=== PATIENT | female | born 1995 | race Caucasian/White ===

== ENCOUNTER 2016-11-26 17:52 | Emergency (ER) | payer BC, MEDICAID ==
[~2016-11-26] VITALS: Ht 157.5 cm; Wt 94.3 kg
[~2016-11-26 17:52] MED LIST: LABETALOL 100M100 M1 PO; LABETALOL200 MG PO; PRENATAL PLUS1 TA1 PO
[2016-11-26] MEDS ORDERED: CITALOPRAM HYDR40 MG PO (18:16)
[2016-11-26] MEDS ORDERED: SPRINTEC 35 MCG1 TAB PO (18:16)
--- NOTE | 2016-11-26 19:06 | Urgent Treatment Center Report ---
See Addendum History of Present Issue Date/Time Seen by Provider 11/26/16 5972 Visit Reason Pt arrived:Walked Presenting Problem:PT STATES LIGHTHEADEDNESS LIKE SHE IS GOING TO PASS OUT. STATES HAVING HEART PALPITATIONS LAST NIGHT. DENIES ANY OTHER SYMPTOMS AND STATES FEELING FINE. STATES DOES NOT HAPPEN WITH POSITION CHANGES. STATES SHE CAN BE STATIONARY WHEN IT HAPPENS. STATES BEGAN SATURDAY Location if Accident: Onset of symptoms date/time:11/21/16/ or onset unknown for:MEDICAL HX UNKNOWN Have you (or family members/close friends) recently traveled outside the [facility]? N If Yes, where/when: Have you had exposure to infectious disease within the past month? TB? Other? Specify: Here w/ mom c/o feeling lightheaded and near syncope. First noticed , 4 days ago. Since that time, episodes have been occurring more frequently. Initially only twice on and now every 30-60 minutes. Lasting approx. 5- 10 minutes. Denies dizziness. "Almost feels like you are high and everything is fading away." Heart palpitations and tachycardia started yesterday. Hx of palpitions during 1.5-2 years ago but not since then. Denies any fever, bodyaches, chills, malaise. No change w/ position changes. "Doesn't matter what I am doing, moving or sitting still, it happens". Hasn't taken or tried anything for symptoms "I don't know what I would take" Source patient, family (mother) Exam Limitations no limitations ALLERGIES Coded Allergies: No Known Allergies (11/26/16) Home Medications Reported Medications NORGESTIMATE-ETHINYL ESTRADIOL (Sprintec 28 Day Tablet) 1 TAB PO DAILY #28 Citalopram Hydrobromide (Citalopram HBr) 40 MG PO NIGHTLY #30 History Medical History General CAD? No Angina: No [place]: No Hypertension? No Hyperlipidemia? No CHF? No DVT? No PE? No COPD? No Asthma? No Anemia? No GERD? No Gastric ulcers? No GI Bleed? No Hernia? No Thyroid Problems? No Hypothyroidism? No CVA? No Seizures? No Diabetes? No Renal Insuffiency? No UTI? No Stones? No GB Disease: No Nephritic Syndrome? No Asplenia? No Hepatitis? No Sickle Cell Disease? No Arthritis? No Migraines? No Cataracts? No Glaucoma? No MRSA? No HIV? No TB? No Anxiety? No Depression? No Cancer? 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 Respiratory denies cough, denies shortness of breath Cardiovascular see HPI, denies chest pain, denies edema, palpitations Gastrointestinal denies abdominal pain, denies diarrhea, denies nausea, denies vomiting Musculoskeletal denies other (pain) Skin denies rash Psychiatric/Neurological denies anxiety, denies headache Physical Exam Vital Signs Vital Signs Date Time Temp Pulse Resp B/P Pulse O2 O2 Flow FiO2 Ox Delivery Rate 11/26 1811 97.8 113 18 129/75 98 repeat HR 101 (HERMINIA ACUÑA APRN) General Appearance normal appearance, no apparent distress Ear, Nose, Throat normal ENT inspection Neck non-tender, supple Respiratory Status No: respiratory distress (no cough). Lung Sounds anterior: lungs clear. posterior: lungs clear. bilateral: lungs clear. Cardiovascular regular rate/rhythm, no murmur Neurologic alert Skin warm/dry Lymphatic no adenopathy (cervical) Medical Decision Making LABS/Meds/Orders Pt receiving controlled substance in ED? No Departure Departure Time of Disposition 1904 Disposition Still a Patient Clinical Impression Primary Impression: Near syncope Secondary Impressions: Tachycardia Condition STABLE Referrals Alexis GERBER,Amilcar (Family) Additional Instructions sent to ER for further evaluation and management. Report called to Ines in ER. at 1906
--- NOTE | 2016-11-26 19:06 | Urgent Treatment Center Report ---
See Addendum History of Present Issue Date/Time Seen by Provider 11/26/16 3702 Visit Reason Pt arrived:Walked Presenting Problem:PT STATES LIGHTHEADEDNESS LIKE SHE IS GOING TO PASS OUT. STATES HAVING HEART PALPITATIONS LAST NIGHT. DENIES ANY OTHER SYMPTOMS AND STATES FEELING FINE. STATES DOES NOT HAPPEN WITH POSITION CHANGES. STATES SHE CAN BE STATIONARY WHEN IT HAPPENS. STATES BEGAN SATURDAY Location if Accident: Onset of symptoms date/time:11/21/16/ or onset unknown for:MEDICAL HX UNKNOWN Have you (or family members/close friends) recently traveled outside the [facility]? N If Yes, where/when: Have you had exposure to infectious disease within the past month? TB? Other? Specify: Here w/ mom c/o feeling lightheaded and near syncope. First noticed , 4 days ago. Since that time, episodes have been occurring more frequently. Initially only twice on and now every 30-60 minutes. Lasting approx. 5- 10 minutes. Denies dizziness. "Almost feels like you are high and everything is fading away." Heart palpitations and tachycardia started yesterday. Hx of palpitions during 1.5-2 years ago but not since then. Denies any fever, bodyaches, chills, malaise. No change w/ position changes. "Doesn't matter what I am doing, moving or sitting still, it happens". Hasn't taken or tried anything for symptoms "I don't know what I would take" Source patient, family (mother) Exam Limitations no limitations ALLERGIES Coded Allergies: No Known Allergies (11/26/16) Home Medications Reported Medications NORGESTIMATE-ETHINYL ESTRADIOL (Sprintec 28 Day Tablet) 1 TAB PO DAILY #28 Citalopram Hydrobromide (Citalopram HBr) 40 MG PO NIGHTLY #30 History Medical History General CAD? No Angina: No [place]: No Hypertension? No Hyperlipidemia? No CHF? No DVT? No PE? No COPD? No Asthma? No Anemia? No GERD? No Gastric ulcers? No GI Bleed? No Hernia? No Thyroid Problems? No Hypothyroidism? No CVA? No Seizures? No Diabetes? No Renal Insuffiency? No UTI? No Stones? No GB Disease: No Nephritic Syndrome? No Asplenia? No Hepatitis? No Sickle Cell Disease? No Arthritis? No Migraines? No Cataracts? No Glaucoma? No MRSA? No HIV? No TB? No Anxiety? No Depression? No Cancer? 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 Respiratory denies cough, denies shortness of breath Cardiovascular see HPI, denies chest pain, denies edema, palpitations Gastrointestinal denies abdominal pain, denies diarrhea, denies nausea, denies vomiting Musculoskeletal denies other (pain) Skin denies rash Psychiatric/Neurological denies anxiety, denies headache Physical Exam Vital Signs Vital Signs Date Time Temp Pulse Resp B/P Pulse O2 O2 Flow FiO2 Ox Delivery Rate 11/26 1811 97.8 113 18 129/75 98 repeat HR 101 (HERMINIA ACUÑA APRN) General Appearance normal appearance, no apparent distress Ear, Nose, Throat normal ENT inspection Neck non-tender, supple Respiratory Status No: respiratory distress (no cough). Lung Sounds anterior: lungs clear. posterior: lungs clear. bilateral: lungs clear. Cardiovascular regular rate/rhythm, no murmur Neurologic alert Skin warm/dry Lymphatic no adenopathy (cervical) Medical Decision Making LABS/Meds/Orders Pt receiving controlled substance in ED? No Departure Departure Time of Disposition 1904 Disposition Still a Patient Clinical Impression Primary Impression: Near syncope Secondary Impressions: Tachycardia Condition STABLE Referrals Alexis GERBER,Amilcar (Family) Additional Instructions sent to ER for further evaluation and management. Report called to Ines in ER. at 1906
[2016-11-26 19:29] LABS: URINE BILIRUBIN - DIPSTICK NEGATIVE (NEG); URINE BLOOD NEGATIVE (NEG)
[2016-11-26 19:39] LABS: URINE SQUAMOUS CELLS 20-50 #/hpf (0-5)
[2016-11-26 20:05] LABS: AMPHETAMINES/METAMPHETAMINES NEGATIVE ng/mL (<1000)
[2016-11-26 20:11] LABS: LYMPH # 3.5 K/mm3 (0.7-4.5); LYMPH % 32.4 % (10-50.0)
[2016-11-26 20:19] LABS: HEMOGLOBIN 14.4 g/dL (12.2-16.2)
[2016-11-26 20:30] LABS: FREE THYROXIN INDEX 8.1 ug/dl (5.93-13.13)
[2016-11-26 21:23] VITALS: BP 125/82
== END 2016-11-26 21:24 | disposition home or self-care (01) ==
LOC: UTC 17:52 → ER 18:01 → UTC 18:01 → ER 21:24
PROVIDERS: Emergency Medicine
DX: R55 Syncope and collapse (principal); R00.0 Tachycardia, unspecified

== ENCOUNTER 2017-02-09 11:20 | Emergency (ER) | payer BC, MEDICAID ==
[~2017-02-09] VITALS: Ht 157.5 cm; Wt 90.7 kg
[~2017-02-09 11:20] MED LIST changes: +ACIDOPHILUS1 CTB PO; +CITALOPRAM HYDR40 MG PO; +CLINDAMYCIN HC300 MG PO; +SPRINTEC 35 MCG1 TAB PO
--- NOTE | 2017-02-09 11:42 | Emergency Room Report ---
History of Present Illness Time Seen by 1136 Presenting Problem in Triage Pt arrived:Walked Presenting Problem:PT REPORTS SHE HAS AN ABSCESS IN THE LEFT SIDE OF HER MOUTH AND THE PAIN IS RADIATING INTO HER JAW. PT WAS SEEN IN THE [facility] YESTERDAY AND GIVEN CLINDAMYCIN AND A PROBIOTIC. PT ALSO REPORTS TAKING IBUPROFEN FOR THE PAIN WITHOUT ANY RELIEF. 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 N Clinical Suspician of Infection? N Mental Status: 1 - Regular (Normal Baseline) Sepsis Risk:Low Sepsis Risk Have you (or family members/close friends) recently traveled outside the [place]? N If Yes, where/when: Have you had exposure to infectious disease within the past month? N TB? Other? Specify: Source patient, RN notes reviewed Exam Limitations no limitations Comment Pt seen in the [facility] yesterday with an abscessed tooth and treated with Clindamycin and a Probiotic. She has been taking Ibuprofen for pain and it has not helped. There is no Dentist in [facility] open today and she does not want to go to today. Cardiac Chest Pain Chest pain indicative of cardiac No ALLERGIES Coded Allergies: No Known Allergies (11/26/16) Home Medications Active Scripts Clindamycin Hcl (Clindamycin 300MG) 300 MG PO QID #40 CAP Prov: 02/08/17 LACTOBACILLUS ACIDOPHILUS (Acidophilus) 1 CTB PO BID #20 CTB Prov: 02/08/17 Reported Medications NORGESTIMATE-ETHINYL ESTRADIOL (Sprintec 28 Day Tablet) 1 TAB PO DAILY #28 History Medical History General CAD? No Angina: No [place]: No Hypertension? No Hyperlipidemia? No CHF? No DVT? No PE? No COPD? No Asthma? No Anemia? No GERD? No Gastric ulcers? No GI Bleed? No Hernia? No Thyroid Problems? No Hypothyroidism? No CVA? No Seizures? No Diabetes? No Renal Insuffiency? No End Stage Renal Disease? No UTI? No Stones? No BPH? No GB Disease: No Nephritic Syndrome? No Asplenia? No Hepatitis? No Sickle Cell Disease? No Arthritis? No Migraines? No Cataracts? No Glaucoma? No MRSA? No HIV? No TB? No Anxiety? No Depression? No Cancer? No More? 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 Physical Exam Vital Signs Vital Signs Date Time Temp Pulse Resp B/P Pulse O2 O2 Flow FiO2 Ox Delivery Rate 02/09 1126 98.2 100 18 154/61 97 General Appearance normal appearance, WD/WN, mild distress Ear, Nose, Throat abscessed tooth left lower molar with mild swelling of the jaw itself Respiratory Status No: respiratory distress. Cardiovascular normal exam, regular rate/rhythm Neurologic alert Medical Decision Making LABS/Meds/Orders Pt receiving controlled substance in ED? Yes Lawrence was queried for this patient? Yes Reference #: [id number] Risks/benefits of using a controlled substance for treatment were not discussed w/pt Comment Pt has had no scheduled drugs prescribed in the past year Departure Departure Time of Disposition 1151 Disposition DC Home or Self Care(routine) Clinical Impression Primary Impression: Abscessed tooth Condition STABLE Referrals Amilcar Espinoza MD (Family): 2 Days-Call Office Patient Instructions DI for Tooth Abscess Additional Instructions Use antibiotics and pain meds as directed. If any worse over the weekend, advised to go to to the Dental Clinic for evaluation Discharge Counseling Counseled pt/family regarding diagnosis, medications/RX, home care, follow up needs Prescriptions Current Visit Scripts HYDROCODONE 5MG/APAP 325MG (Hydrocodon-Acetaminophen 5-325) 1 TAB PO Q4HP PRN dental abscess #15 TAB ED Critical Care Critical Care No If Critical Care minutes are documented, the time involved in the performance of seperately reportable procedures was not counted toward critical care time documented. I directly delivered medical care to this critically ill and/or injured patient. Timely evaluation and treatment was necessary to address the significant organ system(s) dysfunction present in this patient. at 1153
--- NOTE | 2017-02-09 11:42 | Emergency Room Report ---
History of Present Illness Time Seen by 1136 Presenting Problem in Triage Pt arrived:Walked Presenting Problem:PT REPORTS SHE HAS AN ABSCESS IN THE LEFT SIDE OF HER MOUTH AND THE PAIN IS RADIATING INTO HER JAW. PT WAS SEEN IN THE [facility] YESTERDAY AND GIVEN CLINDAMYCIN AND A PROBIOTIC. PT ALSO REPORTS TAKING IBUPROFEN FOR THE PAIN WITHOUT ANY RELIEF. 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 N Clinical Suspician of Infection? N Mental Status: 1 - Regular (Normal Baseline) Sepsis Risk:Low Sepsis Risk Have you (or family members/close friends) recently traveled outside the [place]? N If Yes, where/when: Have you had exposure to infectious disease within the past month? N TB? Other? Specify: Source patient, RN notes reviewed Exam Limitations no limitations Comment Pt seen in the [facility] yesterday with an abscessed tooth and treated with Clindamycin and a Probiotic. She has been taking Ibuprofen for pain and it has not helped. There is no Dentist in [facility] open today and she does not want to go to today. Cardiac Chest Pain Chest pain indicative of cardiac No ALLERGIES Coded Allergies: No Known Allergies (11/26/16) Home Medications Active Scripts Clindamycin Hcl (Clindamycin 300MG) 300 MG PO QID #40 CAP Prov: 02/08/17 LACTOBACILLUS ACIDOPHILUS (Acidophilus) 1 CTB PO BID #20 CTB Prov: 02/08/17 Reported Medications NORGESTIMATE-ETHINYL ESTRADIOL (Sprintec 28 Day Tablet) 1 TAB PO DAILY #28 History Medical History General CAD? No Angina: No [place]: No Hypertension? No Hyperlipidemia? No CHF? No DVT? No PE? No COPD? No Asthma? No Anemia? No GERD? No Gastric ulcers? No GI Bleed? No Hernia? No Thyroid Problems? No Hypothyroidism? No CVA? No Seizures? No Diabetes? No Renal Insuffiency? No End Stage Renal Disease? No UTI? No Stones? No BPH? No GB Disease: No Nephritic Syndrome? No Asplenia? No Hepatitis? No Sickle Cell Disease? No Arthritis? No Migraines? No Cataracts? No Glaucoma? No MRSA? No HIV? No TB? No Anxiety? No Depression? No Cancer? No More? 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 Physical Exam Vital Signs Vital Signs Date Time Temp Pulse Resp B/P Pulse O2 O2 Flow FiO2 Ox Delivery Rate 02/09 1126 98.2 100 18 154/61 97 General Appearance normal appearance, WD/WN, mild distress Ear, Nose, Throat abscessed tooth left lower molar with mild swelling of the jaw itself Respiratory Status No: respiratory distress. Cardiovascular normal exam, regular rate/rhythm Neurologic alert Medical Decision Making LABS/Meds/Orders Pt receiving controlled substance in ED? Yes Lawrence was queried for this patient? Yes Reference #: [id number] Risks/benefits of using a controlled substance for treatment were not discussed w/pt Comment Pt has had no scheduled drugs prescribed in the past year Departure Departure Time of Disposition 1151 Disposition DC Home or Self Care(routine) Clinical Impression Primary Impression: Abscessed tooth Condition STABLE Referrals Amilcar Espinoza MD (Family): 2 Days-Call Office Patient Instructions DI for Tooth Abscess Additional Instructions Use antibiotics and pain meds as directed. If any worse over the weekend, advised to go to to the Dental Clinic for evaluation Discharge Counseling Counseled pt/family regarding diagnosis, medications/RX, home care, follow up needs Prescriptions Current Visit Scripts HYDROCODONE 5MG/APAP 325MG (Hydrocodon-Acetaminophen 5-325) 1 TAB PO Q4HP PRN dental abscess #15 TAB ED Critical Care Critical Care No If Critical Care minutes are documented, the time involved in the performance of seperately reportable procedures was not counted toward critical care time documented. I directly delivered medical care to this critically ill and/or injured patient. Timely evaluation and treatment was necessary to address the significant organ system(s) dysfunction present in this patient. at 1153
[2017-02-09] MEDS ORDERED: HYDROCODONE-APA1 TA1 PO (11:53)
[2017-02-09 12:03] VITALS: BP 154/61
--- OUTSIDE RECORDS SUMMARY | 2017-02-10 22:41 | External Medical Summary Rpt ---
Author Author , Organization [employer] Address Unknown Phone Unavailable Care Team Providers Care Fly Maker Name Role Phone PRICE GUZMAN, PRICE Unavailable Unavailable GU[facility]MAN [facility] Unavailable Unavailable INC, [facility], Unavailable Unavailable [facility] Unavailable Unavailable [facility], [facility] Unavailable Unavailable EQUIPME, [facility] Unavailable Unavailable [facility], [facility] Purpose Continuity of Care Document - 04-29-2015 through 2016 Problems Code Diagnosis DOS Provider Status R000 TACHYCARDIA 11-26-2016 [facility] UNSPECIFIED INC R55 SYNCOPE AND 11-26-2016 [facility] P929 FEEDING 09-01-2015 [facility] PROBLEM OF HOME MEDICAL UNSPECIFIED EQUIPME [id number] OLIGOHYDRAM 08-31-2015 [facility] MEDICAL UNSPECIFIED IMAGING ASS TRIMESTER NA/UNS [id number] OLIGOHYDRAM 08-31-2015 [facility] TRIMESTER INC FETUS 1 [id number] MATERNAL 08-24-2015 [facility] GROWTH 3RD TRI NA/UNS [id number] 35 WEEKS 08-24-2015 [facility] GESTATION [facility] OF INC O133 GESTATIONAL 07-29-2015 [facility] HTN W/O [facility] SIG INC PROTEINURIA THIRD TRI [id number] 31 WEEKS 07-29-2015 [facility] GESTATION [facility] [place] [facility] [id number] OTHER SPEC 07-27-2015 [facility] RELATED INC COND 3RD TRIMESTER 38538 ABNORMAL 07-01-2015 [facility] MATERNAL PHYSICIANS GLUCOSE GROUP TOLERANCE ANTEPARTUM V220 SUPERVISION 04-29-2015 [facility] FIRST INC K04.7 PERIAPICAL ABSCESS WITHOUT SINUS R00.0 TACHYCARDIA , UNSPECIFIED R55 SYNCOPE AND COLLAPSE S16.1XXA STRAIN OF MUSCLE, FASCIA AND TENDON AT NECK LEVEL, INIT Procedures Procedure DOS Code Location Performer Comment XTRNL ECG 50722 [facility] & 48 HR 7 [facility] RECORDING INC INC THYROID 70214 [facility] HORM 7 [facility] UPTK/THYR INC INC OID HORMONE BINDING RATIO BLOOD 27537 [facility] COUNT 7 [facility] COMPLETE INC INC AUTO&AUTO DIFRNTL WBC EXTERNAL 61166 [facility] ECG 7 [facility] SC[place]ING [place] [address] [facility] THYROXINE 7 [facility] TOTAL INC INC CULTURE 94530 [facility] BACTERIAL 7 [facility] INC INC QUANTTATI VE COLONY COUNT URINE URINE 40302 [facility] 7 [facility] TEST INC [place] [address] [facility] THYROID 7 [facility] STIMULATI INC INC NG HORMONE TSH COMPREHEN 98434 [facility] SIVE 7 [facility] METABOLIC INC INC PANEL DRUG TEST 32641 [facility] PRSMV 7 [facility] QUAL DIR INC INC OPTICAL OBS PER DAY BREAST E0603 NICK NICK PUMP 5 HOME HOME ELECTRIC MEDICAL MEDICAL ANY TYPE EQUIPME EQUIPME DOPPLER 88098 [facility] VELOCIMET 5 [facility] RY INC INC UMBILICAL ARTERY 84675 [facility] BIOPHYSIC 5 [facility] AL INC INC PROFILE W/O NON-STRES S TESTING US PREG 02983 [facility] UTERUS 5 [facility] REAL TIME INC INC F/U TRNSABDL PER FETUS US PREG 45111 [facility] UTERUS 5 [facility] REAL TIME INC INC F/U TRNSABDL PER FETUS 07886 [facility] BIOPHYSIC 5 [facility] AL INC INC PROFILE W/O NON-STRES S TESTING PARTICLE 25079 [facility] AGGLUTINA 5 [facility] TION INC INC SCREEN EACH ANTIBODY DOPPLER 20559 [facility] VELOCIMET 5 [facility] RY INC INC UMBILICAL ARTERY PROTEIN 36734 [facility] XCPT 5 [facility] REFRACTOM INC INC ETRY SERUM PLASMA/WH L BLD CULTURE 76249 [facility] BACTERIAL 5 [facility] INC INC QUANTTATI VE COLONY COUNT URINE BASIC 16299 [facility] METABOLIC 5 [facility] [place] [place] [facility] PANEL INC INC CALCIUM TOTAL COLLECTIO 93968 [facility] N VENOUS 5 [facility] [place] [place] [facility] BLOOD INC INC VENIPUNCT URE TRANSFERA 95207 [facility] SE 5 [facility] ASPARTATE INC INC AMINO AST SGOT TRANSFERA 06502 [facility] SE 5 [facility] ALANINE INC INC AMINO ALT SGPT FIBRIN 14390 [facility] DGRADJ 5 [facility] [place] [place] [facility] [place] [place] [facility] PRODUCTS INC INC D-DIMER QUAL/SEMI FIDE FIBRINOGE 61256 [facility] ANTONIOON N 5 [facility] [place] [place] [facility] ACTIVITY INC INC PROTHROMB 90894 [facility] IN TIME 5 [facility] [place] [place] [facility] [place] [place] [address] [facility]LOOD/URI 5 [facility] [place] [place] [facility] C ACID INC INC THROMBOPL 07348 [facility] ANTONIOON ASTIN 5 [facility] TIME INC INC PARTIAL PLASMA/WH OLE BLOOD BLOOD 66671 [facility] COUNT 5 [facility] COMPLETE INC INC AUTO&AUTO DIFRNTL WBC URNLS DIP 48055 [facility] 5 [facility] [place] [place] [facility] [place] [place] [facility] STICK/TAB INC INC LET REAGENT AUTO MICROSCOP Y GLUCOSE 77789 [facility] PRICE TOLERANCE 5 PHYSICIAN GUZMAN TEST GTT S GROUP 3 SPECIMENS COLLECTIO 98325 [facility] PRICE N 5 PHYSICIAN GUZMAN CAPILLARY S GROUP BLOOD SPECIMEN GLUCOSE 32481 [facility] DEE POST 5 PHYSICIAN GUZMAN GLUCOSE S GROUP DOSE US PREG 97676 [facility] UTERUS 5 [facility] W/DETAIL INC INC TUAN 1ST GESTATION Encounters Encounter Start End Date Code Location Performer Type Date EMERGENCY 61650 [facility] 7 7 [facility] DEPARTMEN INC T VISIT HIGH/URGE NT SEVERITY HOSPITAL [facility] - 7 7 [facility] [place] [place] [facility] OUTPATIEN INC T HOSPITAL [facility] - 5 5 [facility] - 5 5 [facility] - 5 5 [facility] - 5 5 [facility] - 5 5 [facility]
--- OUTSIDE RECORDS SUMMARY | 2017-02-10 22:41 | External Medical Summary Rpt ---
Author Author JOHAN Kirby, [employer] Organization [employer] Address Unknown Phone Unavailable
--- OUTSIDE RECORDS SUMMARY | 2017-02-10 22:41 | External Medical Summary Rpt ---
Author Author , Organization [employer] Address Unknown Phone Unavailable Care Team Providers Care Bosom Presser Name Role Phone PRICE GUZMAN, PRICE Unavailable Unavailable [facility] Un[facility] Unavailable INC, [facility], Unavailable Unavailable [facility] Un[facility], [facility] Unavailable Unavailable [facility], [facility] Unavailable Unavailable [facility], [facility] Purpose Continuity of Care Document - 04-29-2015 through 2016 Problems Code Diagnosis DOS Provider Status R000 TACHYCARDIA 11-26-2016 [facility] UNSPECIFIED INC R55 SYNCOPE AND 11-26-2016 [facility] P929 FEEDING 09-01-2015 [facility] PROBLEM OF HOME MEDICAL UNSPECIFIED EQUIPME [id number] OLIGOHYDRAM 08-31-2015 [facility] MEDICAL UNSPECIFIED IMAGING ASS TRIMESTER NA/UNS [id number] OLIGOHYDRAM 08-31-2015 [facility] TRIMESTER INC FETUS 1 [id number] MATERNAL 08-24-2015 [facility] MEDICAL IMAGING ASS GROWTH 3RD TRI NA/UNS Z3A35 35 WEEKS 08-24-2015 [facility] OF INC O133 GESTATIONAL 07-29-2015 [facility] W/O [facility] SIG INC PROTEINURIA THIRD TRI Z3A31 31 WEEKS 07-29-2015 [facility] [id number] OTHER SPEC 07-27-2015 [facility] RELATED INC COND 3RD TRIMESTER 92047 ABNORMAL 07-01-2015 [facility] MATERNAL PHYSICIANS GLUCOSE GROUP TOLERANCE ANTEPARTUM V220 SUPERVISION 04-29-2015 [facility] FIRST INC Procedures Procedure [place] [address] [facility] THYROXINE 7 [facility] TOTAL INC INC CULTURE 65604 [facility] BACTERIAL 7 [facility] INC INC QUANTTATI VE COLONY COUNT URINE EXTERNAL 79734 [facility] ECG 7 [facility] SCANNING INC INC ANALYSIS REPORT URINE 27739 [facility] 7 [facility] TEST INC INC VISUAL COLOR CMPRSN METHS THYROID 02890 [facility] HORM 7 [facility] UPTK/THYR INC INC OID HORMONE BINDING RATIO BLOOD 44572 [facility] COUNT 7 [facility] COMPLETE INC INC AUTO&AUTO DIFRNTL WBC XTRNL ECG 44511 [facility] & 48 HR 7 [facility] [place] [address] [facility] THYROID 7 [facility] STIMULATI INC INC NG HORMONE TSH COMPREHEN 02988 [facility] SIVE 7 [facility] METABOLIC INC INC PANEL DRUG TEST 45119 [facility] PRSMV 7 [facility] QUAL DIR INC INC OPTICAL OBS PER DAY BREAST E0603 NICK NICK PUMP 5 HOME [facility] E[facility]ICAL MEDICAL ANY TYPE EQUIPME EQUIPME DOPPLER 20670 [facility] VELOCIMET 5 [facility] RY INC INC UMBILICAL ARTERY 75952 [facility] BIOPHYSIC 5 [facility] AL INC INC PROFILE W/O NON-STRES S TESTING US PREG 35650 [facility] UTERUS 5 [facility] REAL TIME INC INC F/U TRNSABDL PER FETUS US PREG 58977 [facility] UTERUS 5 [facility] REAL TIME INC INC F/U TRNSABDL PER FETUS PARTICLE 01878 [facility] AGGLUTINA 5 [facility] TION INC INC SCREEN EACH ANTIBODY 94717 [facility] BIOPHYSIC 5 [facility] AL INC INC PROFILE W/O NON-STRES S TESTING DOPPLER 71039 [facility] VELOCIMET 5 [facility] RY INC INC UMBILICAL ARTERY PROTEIN 32194 [facility] XCPT 5 [facility] REFRACTOM INC INC ETRY SERUM PLASMA/WH L BLD BLOOD 10567 [facility] COUNT 5 [facility] COMPLETE INC INC AUTO&AUTO DIFRNTL WBC BASIC 34454 [facility] METABOLIC 5 [facility] PANEL INC INC CALCIUM TOTAL FIBRIN 43787 [facility] DGRADJ 5 [facility] PRODUCTS INC INC D-DIMER QUAL/SEMI FIDE FIBRINOGE 20970 [facility] N 5 [facility] ACTIVITY INC INC PROTHROMB 92524 [facility] IN TIME 5 [facility] [place] [address] [facility] BLOOD/URI 5 [facility] C ACID INC INC THROMBOPL 00382 [facility] ANTONIOON ASTIN 5 [facility] TIME INC INC PARTIAL PLASMA/WH OLE BLOOD CULTURE 62070 [facility] BACTERIAL 5 [facility] INC INC QUANTTATI VE COLONY COUNT URINE COLLECTIO 84188 [facility] N VENOUS 5 [facility] BLOOD INC INC VENIPUNCT URE TRANSFERA 70709 [facility] SE 5 [facility] ASPARTATE INC INC AMINO AST SGOT TRANSFERA 70574 [facility] SE 5 [facility] ALANINE INC INC AMINO ALT SGPT URNLS DIP 98813 [facility]IA 5 [facility] STICK/TAB INC INC LET REAGENT AUTO MICROSCOP Y COLLECTIO 80069 [facility] PRICE N 5 PHYSICIAN GUZMAN CAPILLARY S GROUP BLOOD SPECIMEN GLUCOSE 27764 [facility] PRICE TOLERANCE 5 PHYSICIAN GUZMAN TEST GTT S GROUP 3 SPECIMENS GLUCOSE 03347 [facility] PRICE POST 5 PHYSICIAN GUZMAN GLUCOSE S GROUP DOSE US PREG 71165 [facility] UTERUS 5 [facility] W/DETAIL INC INC TUAN 1ST GESTATION Encounters Encounter Start End Date Code Location Performer Type Date EMERGENCY 88990 [facility] 7 7 [facility] 7 7 [facility] - 5 5 [facility] - 5 5 [facility] - 5 5 [facility] 5 [facility]
--- OUTSIDE RECORDS SUMMARY | 2017-02-10 22:41 | External Medical Summary Rpt ---
Author Author , Organization [employer] Address Unknown Phone Unavailable Care Team Providers Care Consumer Insight Analyst Name Role Phone PRICE GUZMAN, PRICE Unavailable Unavailable [facility] Unavailable Unavailable INC, [facility], [facility]available Unavailable [facility] Unavailable Unavailable [facility], [facility] Unavailable [...] [facility] PROBLEM OF HOME MEDICAL UNSPECIFIED EQUIPME [id number] OLIGOHYDRAM 08-31-2015 [facility] MEDICAL UNSPECIFIED IMAGING ASS TRIMESTER NA/UNS [id number] OLIGOHYDRAM 08-31-2015 [facility] TRIMESTER INC FETUS 1 [id number] MATERNAL 08-24-2015 [facility] MEDICAL IMAGING ASS GROWTH 3RD TRI NA/UNS Z3A35 35 WEEKS 08-24-2015 [facility] OF INC O133 GESTATIONAL 07-29-2015 [facility] W/[facility] SIG INC PROTEINURIA THIRD TRI Z3A31 31 WEEKS 07-29-2015 [facility] [id number] OTHER SPEC 07-27-2015 [facility] RELATED INC COND 3RD TRIMESTER 51313 ABNORMAL 07-01-2015 [facility] MATERNAL PHYSICIANS GLUCOSE GROUP TOLERANCE ANTEPARTUM V220 SUPERVISION 04-29-2015 [facility] FIRST INC Procedures Procedure [place] [address] [facility] THYROXINE 7 [facility] TOTAL INC INC CULTURE 71937 [facility] BACTERIAL 7 [facility] INC INC QUANTTATI VE COLONY COUNT URINE EXTERNAL 32694 [facility] ECG 7 [facility] SCANNING INC INC ANALYSIS REPORT URINE 73512 [facility] 7 [facility] TEST INC INC VISUAL COLOR CMPRSN METHS THYROID 82800 [facility] HORM 7 [facility] UPTK/THYR INC INC OID HORMONE BINDING RATIO BLOOD 86765 [facility] COUNT 7 [facility] COMPLETE INC INC AUTO&AUTO DIFRNTL WBC XTRNL ECG 89129 [facility] & 48 HR 7 [facility] [place] [address] [facility] THYROID 7 [facility] STIMULATI INC INC NG HORMONE TSH COMPREHEN 19159 [facility] SIVE 7 [facility] METABOLIC INC INC PANEL DRUG TEST 96427 [facility] PRSMV 7 [facility] QUAL DIR INC INC OPTICAL OBS PER DAY BREAST E0603 NICK NICK PUMP 5 HOME HOME ELECTRIC MEDICAL MEDICAL ANY TYPE EQUIPME EQUIPME DOPPLER 35605 [facility] VELOCIMET 5 [facility] RY INC INC UMBILICAL ARTERY 57165 [facility] BIOPHYSIC 5 [facility] AL INC INC PROFILE W/O NON-STRES S TESTING US PREG 05019 [facility] UTERUS 5 [facility] REAL TIME INC INC F/U TRNSABDL PER FETUS US PREG 06376 [facility] UTERUS 5 [facility] REAL TIME INC INC F/U TRNSABDL PER FETUS PARTICLE 72882 [facility] AGGLUTINA 5 [facility] TION INC INC SCREEN EACH ANTIBODY 36319 [facility] BIOPHYSIC 5 [facility] AL INC INC PROFILE W/O NON-STRES S TESTING DOPPLER 66541 [facility] VELOCIMET 5 [facility] RY INC INC UMBILICAL ARTERY PROTEIN 96585 [facility] XCPT 5 [facility] REFRACTOM INC INC ETRY SERUM PLASMA/WH L BLD BLOOD 33565 [facility] COUNT 5 [facility] COMPLETE INC INC AUTO&AUTO DIFRNTL WBC BASIC 57316 [facility] METABOLIC 5 [facility] PANEL INC INC CALCIUM TOTAL FIBRIN 13881 [facility] DGRADJ 5 [facility] PRODUCTS INC INC D-DIMER QUAL/SEMI FIDE FIBRINOGE 42224 [facility] N 5 [facility] ACTIVITY INC INC PROTHROMB 31460 [facility] IN TIME 5 [facility] [place] [address] [facility] BLOOD/URI 5 [facility] C ACID INC INC THROMBOPL 72249 [facility] ANTONIOON ASTIN 5 [facility] TIME INC INC PARTIAL PLASMA/WH OLE BLOOD CULTURE 83561 [facility] BACTERIAL 5 [facility] INC INC QUANTTATI VE COLONY COUNT URINE COLLECTIO 25169 [facility] N VENOUS 5 [facility] BLOOD INC INC VENIPUNCT URE TRANSFERA 35262 [facility] SE 5 [facility] ASPARTATE INC INC AMINO AST SGOT TRANSFERA 66019 [facility] SE 5 [facility] ALANINE INC INC AMINO ALT SGPT URNLS DIP 97288 [facility] 5 [facility] STICK/TAB INC INC LET REAGENT AUTO MICROSCOP Y COLLECTIO 62650 [facility] PRICE N 5 PHYSICIAN GUZMAN CAPILLARY S GROUP BLOOD SPECIMEN GLUCOSE 37952 [facility] PRICE TOLERANCE 5 PHYSICIAN GUZMAN TEST GTT S GROUP 3 SPECIMENS GLUCOSE 05369 [facility] PRICE POST 5 PHYSICIAN GUZMAN GLUCOSE S GROUP DOSE US PREG 37873 [facility] UTERUS 5 [facility] W/DETAIL INC INC TUAN 1ST GESTATION Encounters Encounter Start End Date Code Location Performer Type Date EMERGENCY 43576 [facility] 7 7 [facility] - 7 7 [facility] - 5 5 [facility] - 5 5 [facility]
--- OUTSIDE RECORDS SUMMARY | 2017-02-10 22:41 | External Medical Summary Rpt ---
Demographics Preferred Language Tajik Marital Status Unknown Hindu Affiliation Unknown Race Unknown Ethnic Group Unknown Author Author , Organization [employer] Address Unknown Phone Unavailable Purpose Continuity of Care Document - through 2016 Immunization No patient found.
--- OUTSIDE RECORDS SUMMARY | 2017-02-10 22:41 | External Medical Summary Rpt ---
Demographics Preferred Language Croatian Marital Status Unknown Bahai Affiliation Unknown Race Unknown Ethnic Group Unknown Author Author , Organization [employer] Address Unknown Phone Unavailable Purpose Continuity of Care Document - through 2016 Immunization No patient found.
--- OUTSIDE RECORDS SUMMARY | 2017-02-10 22:41 | External Medical Summary Rpt ---
Author Author , Organization [employer] Address Unknown Phone Unavailable Care Team Providers Care Pole Tester Name Role Phone PRICE GUZMAN, PRICE Unavailable Unavailable [facility] Unavailable [facility]available INC, [facility], Unavailable Unavailable [facility] Unavailable [facility]available [facility], [facility] Unavailable Unavailable [facility], [facility] Unavailable Unavailable [facility], [facility] Purpose Continuity of Care Document - 04-29-2015 through 2016 Problems Code Diagnosis DOS Provider Status R000 TACHYCARDIA 11-26-2016 [facility] UNSPECIFIED INC R55 SYNCOPE AND 11-26-2016 [facility] P929 FEEDING 09-01-2015 [facility] PROBLEM OF HOME MEDICAL UNSPECIFIED EQUIPME [id number] OLIGOHYDRAM 08-31-2015 [facility] MEDICAL UNSPECIFIED IMAGING ASS TRIMESTER NA/UNS [id number] OLIGOHYDRAM 08-31-2015 [facility] TRIMESTER INC FETUS 1 [id number] MATERNAL 08-24-2015 [facility] MEDICAL IMAGING ASS GROWTH 3RD TRI NA/UNS Z3A35 35 WEEKS 08-24-2015 [place] [facility] OF INC O133 GESTATIONAL 07-29-2015 [place] [facility] W/O [facility] SIG INC PROTEINURIA THIRD TRI Z3A31 31 WEEKS 07-29-2015 [place] [facility] [id number] OTHER SPEC 07-27-2015 [facility] RELATED INC COND 3RD TRIMESTER 77849 ABNORMAL 07-01-2015 [facility] MATERNAL PHYSICIANS GLUCOSE GROUP TOLERANCE ANTEPARTUM V220 SUPERVISION 04-29-2015 [facility] FIRST INC K04.7 PERIAPICAL ABSCESS WITHOUT SINUS R00.0 TACHYCARDIA , UNSPECIFIED R55 SYNCOPE AND COLLAPSE S16.1XXA STRAIN OF MUSCLE, FASCIA AND TENDON AT NECK LEVEL, INIT Procedures Procedure DOS Code Location Performer Comment XTRNL ECG 43742 [facility] & 48 HR 7 [facility] RECORDING INC INC THYROID 09698 [facility] HORM 7 [facility] UPTK/THYR INC INC OID HORMONE BINDING RATIO BLOOD 46036 [facility] COUNT 7 [facility] COMPLETE INC INC AUTO&AUTO DIFRNTL WBC EXTERNAL 97970 [facility] ECG 7 [facility] SCANNING [place] [address] [facility] THYROXINE 7 [facility] TOTAL INC INC CULTURE 15622 [facility] BACTERIAL 7 [facility] INC INC QUANTTATI VE COLONY COUNT URINE URINE 53610 [facility] 7 [facility] TEST INC INC [place] [address] [facility] THYROID 7 [facility] STIMULATI INC INC NG HORMONE TSH COMPREHEN 41962 [facility] SIVE 7 [facility] METABOLIC INC INC PANEL DRUG TEST 19035 [facility] PRSMV 7 [facility] QUAL DIR INC INC OPTICAL OBS PER DAY BREAST E0603 NICK NICK PUMP 5 HOME HOME ELECTRIC MEDICAL MEDICAL ANY TYPE EQUIPME EQUIPME DOPPLER 72343 [facility] VELOCIMET 5 [facility] RY INC INC UMBILICAL ARTERY 81387 [facility] BIOPHYSIC 5 [facility] AL INC INC PROFILE W/O NON-STRES S TESTING US PREG 69212 [facility] UTERUS 5 [facility] REAL TIME INC INC F/U TRNSABDL PER FETUS US PREG 07887 [facility] UTERUS 5 [facility] REAL TIME INC INC F/U TRNSABDL PER FETUS 27794 [facility] BIOPHYSIC 5 [facility] AL INC INC PROFILE W/O NON-STRES S TESTING PARTICLE 27875 [facility] AGGLUTINA 5 [facility] TION INC INC SCREEN EACH ANTIBODY DOPPLER 89944 [facility] VELOCIMET 5 [facility] RY INC INC UMBILICAL ARTERY PROTEIN 34395 [facility] XCPT 5 [facility] REFRACTOM INC INC ETRY SERUM PLASMA/WH L BLD CULTURE 62433 [facility] BACTERIAL 5 [facility] INC INC QUANTTATI VE COLONY COUNT URINE BASIC 84559 [facility] METABOLIC 5 [facility] PANEL INC INC CALCIUM TOTAL COLLECTIO 51757 [facility] N VENOUS 5 [facility] BLOOD INC INC VENIPUNCT URE TRANSFERA 38724 [facility] SE 5 [facility] ASPARTATE INC INC AMINO AST SGOT TRANSFERA 19670 [facility] SE 5 [facility] ALANINE INC INC AMINO ALT SGPT FIBRIN 43851 [facility] DGRADJ 5 [facility] PRODUCTS INC INC D-DIMER QUAL/SEMI FIDE FIBRINOGE 18118 [facility] ANTONIOON N 5 [facility] ACTIVITY INC INC PROTHROMB 63280 [facility] IN TIME 5 [facility] [place] [address] [facility] BLOOD/URI 5 [facility] C ACID INC INC THROMBOPL 54268 [facility] ANTONIOON ASTIN 5 [facility] TIME INC INC PARTIAL PLASMA/WH OLE BLOOD BLOOD 52974 [facility] COUNT 5 [facility] COMPLETE INC INC AUTO&AUTO DIFRNTL WBC URNLS DIP 94222 [facility] GL[facility]IA 5 [facility] STICK/TAB INC INC LET REAGENT AUTO MICROSCOP Y GLUCOSE 30347 [facility] PRICE TOLERANCE 5 PHYSICIAN GUZMAN TEST GTT S GROUP 3 SPECIMENS COLLECTIO 62715 [facility] PRICE N 5 PHYSICIAN GUZMAN CAPILLARY S GROUP BLOOD SPECIMEN GLUCOSE 78358 [facility] DEE POST 5 PHYSICIAN GUZMAN GLUCOSE S GROUP DOSE US PREG 15300 [facility] UTERUS 5 [facility] W/DETAIL INC INC TUAN 1ST GESTATION Encounters Encounter Start End Date Code Location Performer Type Date EMERGENCY 05527 [facility] 7 7 [facility] DEPART[facility] INC T VISIT H[facility] - 7 7 [facility] 5 5 [facility] J[facility] - 5 5 [facility] J[facility]ANI - 5 5 [facility] J[facility] - 5 5 [facility] - 5 5 [facility]
== END 2017-02-09 12:04 | disposition home or self-care (01) ==
LOC: ER 11:20
DX: K04.7 Periapical abscess without sinus (principal); Z72.0 Tobacco use

== ENCOUNTER 2017-06-05 14:14 | Emergency (ER) | payer BC, MEDICAID ==
[~2017-06-05] VITALS: Ht 157.5 cm; Wt 81.6 kg
[~2017-06-05 14:14] MED LIST changes: +HYDROCODONE-APA1 TA1 PO; +MEDROL 4MG. DOSE4 MG PO; +MEDROL DOSEPAK4 MG PO; +NORCO 325 MG-51 TAB PO
--- NOTE | 2017-06-05 14:44 | Urgent Treatment Center Report ---
History of Present Issue Date/Time Seen by Provider 06/05/17 4814 Visit Reason Pt arrived:Walked Presenting Problem:CHEST CONGESTION, COUGH, HEADACHE Location if Accident: Onset of symptoms date/time:/ or onset unknown for:MEDICAL HX UNKNOWN Have you (or family members/close friends) recently traveled outside the [place]? N If Yes, where/when: Have you had exposure to infectious disease within the past month? TB? Other? Specify: Here w/ mother and son, both with similiar symptoms. c/o nasal congestion, rhinorrhea, watery eyes, intermittent headaches starting 2 days ago that has progressed into chest congestion, cough, wheezing. Denies SOA. + 1ppd smoker. [place] feverish yesterday but no known fevers. No change with one dose of bendaryl. Hasn't taken or tried anything else. Also c/o right lower back pain. "I think sciatica again". Hx of same symptoms several times in the past. "Once because I sneezed". Not as severe as those times "just yet" but feels like it is getting that way. Initially started one week ago but since coughing last 2 days, seems worse. Has been working out and exercising more. No known injury. Constant dull ache right lower back with intermittent sharp "electric type" pains into right hip and LE. Lortab pt reports that is prescribed "just for this pain" "is like a bandaid but doesn't fix it. i want it fixed". Naproxen "is the same way". Icy hot and heating pad help temporarily. In the past, reports steroids have helped. Denies N/T, incontinence. Starting to have limited ROM "just because when I do move my back certain ways, it hurts more". Source patient Exam Limitations no limitations ALLERGIES Coded Allergies: No Known Allergies (11/26/16) Home Medications Active Scripts LACTOBACILLUS ACIDOPHILUS (Acidophilus) 1 CTB PO BID #20 CTB Prov: 02/08/17 HYDROCODONE 5MG/APAP 325MG (Hydrocodon-Acetaminophen 5-325) 1 TAB PO Q4HP PRN dental abscess #15 TAB Prov: 02/09/17 Methylprednisolone (Medrol Dose [place]) 4 MG PO UD #1 PIERCE Prov: 03/12/17 HYDROCODONE/ACETAMINOPHEN ([place] 5-325 Tablet) 1 TAB PO Q6HP PRN pain #10 TAB Prov: 03/12/17 Methylprednisolone (Medrol) 4 MG PO AD #1 TAB Prov: 03/02/17 Reported Medications NORGESTIMATE-ETHINYL ESTRADIOL (Sprintec 28 Day Tablet) 1 TAB PO DAILY #28 History Medical History General CAD? No Angina: No MS: No Hypertension? No Hyperlipidemia? No CHF? No DVT? No PE? No COPD? No Asthma? No Anemia? No GERD? No Gastric ulcers? No GI Bleed? No Hernia? No Thyroid Problems? No Hypothyroidism? No CVA? No Seizures? No Diabetes? No Renal Insuffiency? No UTI? No Stones? No BPH? No GB Disease: No Nephritic Syndrome? No Asplenia? No Hepatitis? No Sickle Cell Disease? No Arthritis? No Migraines? No Cataracts? No Glaucoma? No MRSA? No HIV? No TB? No Anxiety? No Depression? No Cancer? No More? 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 denies: ear pain, throat swelling. Respiratory see HPI Cardiovascular denies chest pain, denies edema, denies palpitations Gastrointestinal denies no symptoms reported Genitourinary see HPI. Musculoskeletal see HPI Skin denies lesions, denies lumps, denies rash Psychiatric/Neurological see HPI Physical Exam Vital Signs Vital Signs Date Time Temp Pulse Resp B/P Pulse O2 O2 Flow FiO2 Ox Delivery Rate 06/05 1523 98.2 95 20 149/82 96 06/05 1434 98.2 95 20 149/82 96 General Appearance mild distress, laying on left side on exam table, partially reclined; slow to change positions Eye Exam - bilateral eye normal exam Ear, Nose, Throat normal ENT inspection (x/ clear nasal drainage) Neck non-tender, supple Respiratory Status Yes: trachea midline, chest symmetrical, non productive cough (worse w/ deep breaths). No: respiratory distress, use of accessory muscles, pain on inspiration, pain on expiration, productive cough. Lung Sounds anterior: wheezing (faint, end expiratory). posterior: wheezing (faint, end expiratory). bilateral: wheezing (faint, end expiratory). Cardiovascular regular rate/rhythm, no peripheral edema, no murmur Back normal inspection, no vertebral tenderness, bowel/bladder continent, gait normal, strt leg raising(L)-NML, strt leg raising(R)-NML, tenderness limited to right SI joint Extremities non-tender (BLE), normal range of motion (BLE) Strength 5 Lower Ext (L), 5 Lower Ext (R) Neurologic alert, no motor/sensory deficits, oriented x 3 Reflexes Reflexes normal Yes (patellar) Skin normal color, warm/dry Lymphatic no adenopathy Medical Decision Making LABS/Meds/Orders Pt receiving controlled substance in ED? No Results/Orders Current Medication Orders Sig/[place] Start time Last Medication Dose Route Stop Time Status Admin Triamcinolone 40 MG ONCE ONE 06/05 1515 DCD 06/05 Acetonide IM 06/05 151 1518 Triamcinolone 0 .STK-MED ONE 06/05 1513 DC Acetonide .ROUTE Departure Departure Time of Disposition 1514 Disposition DC Home or Self Care(routine) Clinical Impression Primary Impression: Right-sided low back pain with right-sided sciatica Qualifiers: Chronicity: acute Qualified Code: M54.41 - Lumbago with sciatica, right side Secondary Impressions: Acute bronchitis Qualifiers: Bronchitis organism: unspecified organism Qualified Code: J20.9 - Acute bronchitis, unspecified Tobacco abuse Condition STABLE Referrals Alexis GERBER,Amilcar (Family) Follow up IMMEDIATELY for new or worsening symptoms OR no noticeable improvement over the next 48-72 hours. 911 for difficulty breathing. Patient Instructions DI for Acute Bronchitis, DI for Back Pain With Sciatica, How to Quit Tobacco Products Additional Instructions * start antibiotic today. Be sure to complete entire prescription even if feeling better. * Monitor Temp. Tylenol every 4 hours as needed and/or ibuprofen every 6 hours as needed (as long as your primary care doctor has told you that it is ok to take both) for fever/aches/pain. ER if fever no less than 101 despite tylenol and ibuprofen * humidifier/vaporizer/hot steamy shower * Inhaler every 4-6 hours as needed like we discussed. If unsure how to use it, ask pharmacist to demonstrate how. Should help open airways and improve cough, wheezing, shortness of breath. * Mucinex during the day for your cough and cough suppressant only at night. Be sure to drink lots of water. Insurance may not cover a prescription of mucinex. Might be cheaper to get 400mg tablets and take 2 tablets morning, midday and evening all with lots of water. * Steroid injection administered for back and chest. Kenalog 40mg. Helps with inflammation therefore, cough and wheezing. Rvwd side effects. Pt reports they have taken them before. * Ice x15-20 mins 3-4 times a day for first 48 hours after the initial injury followed by moist heat x15-20 mins 3-4 times a day to affected area * Keep this area active. No movement leads to more stiffness. However, take it easy too and avoid heavy lifting, pushing, pulling. * STONGLY recommend you discuss these repeated back pain flares with your primary care. You might need PT or MRI. Discharge Counseling Counseled pt/family regarding diagnosis, medications/RX, home care, follow up needs Prescriptions Current Visit Scripts Azithromycin (Zithromycin (Z-PIERCE) 250MG Tab) 250 MG PO DAILY #6 TAB TAKE TWO (2) TABLETS ON DAY 1, THEN ONE (1) TABLET DAY #2 THRU #5 ALBUTEROL (Proventil Hfa Inhaler) 1-2 PUFF IH Q4-6H PRN PRN SOA, wheezing #1 CAN at 1917
[2017-06-05] MEDS ORDERED: ZITHROMAX Z PA250 MG PO (15:22)
[2017-06-05] MEDS ORDERED: PROVENTIL0.09 MG/A1 IH (15:22)
[2017-06-05 15:23] VITALS: BP 149/82
== END 2017-06-05 15:24 | disposition home or self-care (01) ==
LOC: UTC 14:14
DX: M54.41 Lumbago with sciatica, right side (principal); J20.9 Acute bronchitis, unspecified; Z72.0 Tobacco use

== ENCOUNTER 2017-07-02 12:00 | Emergency (ER) | payer BC, MEDICAID ==
[~2017-07-02] VITALS: Ht 162.6 cm; Wt 86.2 kg
--- NOTE | 2017-07-02 13:04 | Urgent Treatment Center Report ---
History of Present Issue Date/Time Seen by Provider 07/02/17 1303 Visit Reason Pt arrived:Walked Presenting Problem:PT IS C/O SORE THROAT, COUGH, AND CONGESTION Location if Accident: Onset of symptoms date/time:/ or onset unknown for:MEDICAL HX UNKNOWN Have you (or family members/close friends) recently traveled outside the [place]? N If Yes, where/when: Have you had exposure to infectious disease within the past month? TB? Other? Specify: Patient state that she has been having sorethroat, cough and congestion for several days along with pain in both her ears State that she has not felt well and thinks she may have been exposed to strep. State that she has been having chills and felt feverish ALLERGIES Coded Allergies: No Known Allergies (11/26/16) History Medical History General CAD? No Angina: No NC: No Hypertension? No Hyperlipidemia? No CHF? No DVT? No PE? No COPD? No Asthma? No Anemia? No GERD? No Gastric ulcers? No GI Bleed? No Hernia? No Thyroid Problems? No Hypothyroidism? No CVA? No Seizures? No Diabetes? No Renal Insuffiency? No UTI? No Stones? No BPH? No GB Disease: No Nephritic Syndrome? No Asplenia? No Hepatitis? No Sickle Cell Disease? No Arthritis? No Migraines? No Cataracts? No Glaucoma? No MRSA? No HIV? No TB? No Anxiety? No Depression? No Cancer? No More? No Immunization HX DT/Tetanus 5-10 Years Ago Flu Refused Pneumonia Refuses Surgical Hx Previous Surgery?Y EAR TUBES Social History Smoking Hx Smoker: Current Every Day Smoker Tobacco: Yes Type Cigarettes Packs/day < 1 Pack Alcohol Alcohol: No Review of Systems All Other Systems Reviewed and Negative Constitutional chills, fever ENT ear pain, nose congestion, throat pain, throat swelling. Respiratory cough Physical Exam Vital Signs Vital Signs Date Time Temp Pulse Resp B/P Pulse O2 O2 Flow FiO2 Ox Delivery Rate 07/02 1233 98.1 124 18 126/99 96 General Appearance normal appearance, WD/WN, no apparent distress Ear, Nose, Throat tonsillar swelling, Throat red, irritated swollen with drainage noted in back of throat right ear red TM buldging Respiratory Status Yes: trachea midline, chest symmetrical, non tender chest. No: respiratory distress. Cardiovascular normal exam, regular rate/rhythm, no peripheral edema, no gallop Neurologic alert, director of digital platforms II-XII nml as tested, normal exam, no motor/sensory deficits, oriented x 3 Comments Patient also states that she has had a period on and off for the last month state that she will bleed for a couple of days then stop for a coulple of days then start again State that she has an appointment next week with Dr Carl LÓPEZ for this same complaint Medical Decision Making LABS/Meds/Orders Pt receiving controlled substance in ED? No Results/Orders Laboratory Tests 07/02/17 1230: Group A Strep Screen NOT DETECTED Orders Procedure Date/time Status [facility] STREP SCREEN 07/02 1229 Complete Departure Departure Time of Disposition 1311 Disposition DC Home or Self Care(routine) Clinical Impression Primary Impression: Upper respiratory infection Qualifiers: URI type: acute tonsillitis Pharyngitis/tonsillitis etiology: unspecified etiology Qualified Code: J03.90 - Acute tonsillitis, unspecified Secondary Impressions: Otitis media Qualifiers: Otitis media type: unspecified Chronicity: unspecified Laterality: right Qualified Code: H66.91 - Otitis media, unspecified, right ear Condition STABLE Patient Instructions DI for Otitis Media (Middle Ear Infection)-Child, Sore Throat Additional Instructions * Monitor Temp. Tylenol and/or Ibuprofen as needed. ER if fever is no less than 101 despite alternating Tylenol and Ibuprofen * Encourage fluids, water, Gatorade, powerade, pedialyte if infant/toddler/or child * Warm salt water gargles for throat irritation *Warm fluids *Sore throat lozenges *Sleep elevated *humidifier or vaporizer Follow up IMMEDIATELY for new or worsening of symptoms OR no noticeable improvement over the next 48-72 hours. 911 immediately for any life threatening symptoms such as chest pain or difficulty breathing Discharge Counseling Counseled pt/family regarding diagnosis, medications/RX, home care, follow up needs Prescriptions Current Visit Scripts CEFDINIR (Cefdinir) 300 MG PO BID #20 CAP at 1310
[2017-07-02 13:16] VITALS: BP 126/99
== END 2017-07-02 13:18 | disposition home or self-care (01) ==
LOC: UTC 12:00
DX: J03.90 Acute tonsillitis, unspecified (principal); H66.91 Otitis media, unspecified, right ear; F17.210 Nicotine dependence, cigarettes, uncomplicated

== ENCOUNTER → 2017-08-21 | Outpatient (CLI) | payer BC, MEDICAID ==
[~2017-08-21] MED LIST changes: +OMNICEF 300 MG300 MG PO; +PROVENTIL0.09 MG/A1 IH; +ZITHROMAX Z PA250 MG PO
[2017-08-24 03:41] LABS: Neisseria gonorrhoeae, NAA Negative (Negative)
== END ==
LOC: LAB 17:34
PROVIDERS: Nurse Practitioner Obstetrics & Gynecology
DX: R87.610 Atypical squamous cells of undetermined significance on cytologic smear of cervix (ASC-US) (principal); R87.810 Cervical high risk human papillomavirus (HPV) DNA test positive